=== PATIENT | male | born 1945 | race Caucasian/White ===

== ENCOUNTER → 2017-02-08 | Outpatient (REF) | payer MEDICARE, OTHER ==
[~2017-02-08] MED LIST: AMIT25TA9 PO; ASPI-586 PO; ASPI-860 PO; ASPI325T4 PO; ATOR40TA59 PO; BUSP10TA95; CALC500T35 PO; CLOP75TA28 PO; DONE10TA5 PO; FAMO-118 PO; FERR-74 PO; FLC1T PO; GLIM2TAB PO; GLUC1CAP10 PO; HYDROCODONE/APAP PO; LACT10SO6 PO; LISI1TAB6 PO; LISI5TAB14 PO; LOVA20TA2 PO; MELA1TAB9 PO; METF1000 PO; METO25TA60 PO; MULT-954 PO; NICO1PAT38 TD; NITR100C3 PO; RISP1TAB3; THIA100T12 PO; TRAZ-28 PO; [UNRECOGNIZED DRUG - CODE]
[2017-02-08 14:41] LABS: BASOPHILS % (AUTO) 1 % (0-2); EOSINOPHILS # (AUTO) 0.2 10^3uL; EOSINOPHILS % (AUTO) 4 % (0-4); LYMPHOCYTES # (AUTO) 1.4 X10^3; MEAN CORPUSCULAR HEMOGLOBIN 30.7 PG (26.0-34.0); MEAN CORPUSCULAR HGB CONC 33.3 g/dL (31.0-37.0); MEAN CORPUSCULAR VOLUME 92 FL (80-100); MONOCYTES # (AUTO) 0.6 X10^3; MONOCYTES % (AUTO) 11 % (3-11); NEUTROPHILS % (AUTO) 57 % (51-67); PLATELET COUNT 165 10^3uL (150-450)
[2017-02-08 14:57] LABS: ALBUMIN 3.9 g/dL (3.4-5.0); CALCULATED IONIZED CALCIUM 4.2 mg/dL (3.8-4.6); TOTAL PROTEIN 6.8 g/dL (6.4-8.5)
== END ==
LOC: LAB 14:26
PROVIDERS: ATTEND Family Medicine
DX: R00.8 Other abnormalities of heart beat (principal)
CPT/HCPCS: 80053; 85025